=== PATIENT | male | born 1955 | race Caucasian/White ===

== ENCOUNTER 2020-02-03 19:53 | Inpatient (IN) ==
[2020-02-03] MEDS ORDERED: Ondansetron 4 MG/2 ML VIAL IVP PRN (22:14)
[2020-02-03] MEDS ORDERED: Naloxone 0.4 MG/ML INJ IVP PRN (22:14)
[2020-02-03] MEDS ORDERED: Acetaminophen 325 MG TABLET PO PRN (22:14)
[2020-02-03] MEDS ORDERED: *HR* Heparin 5,000 UNIT/ML VIAL IVP ONE (23:47)
[2020-02-03] MEDS ORDERED: *HR* Heparin 5,000 UNIT/ML VIAL IVP PRN (23:47)
[2020-02-04] MEDS ORDERED: *HR* Heparin 5,000 UNIT/ML VIAL IVP PRN (00:10)
[2020-02-04 00:12] LABS: Alanine Aminotransferase 18 Units/L (7-52); Albumin 4.3 g/dL (3.5-5.7); Albumin/Globulin Ratio 2.2 (1.1-2.2); Alkaline Phosphatase 46 Units/L (34-104); Aspartate Amino Transferase 30 Units/L (13-39); BUN/Creatinine Ratio 22 (6-26); Bilirubin,Total 0.7 mg/dL (0.3-1.0); Blood Urea Nitrogen 17 mg/dL (8-23); Calcium 9.5 mg/dL (8.6-10.3); Carbon Dioxide 23 mEq/L (23-29); Chloride 107 mEq/L (98-107); Glucose 109 mg/dL (70-105); Osmolality,Calculated 286 (280-300); Potassium 3.5 mEq/L (3.5-5.1); Sodium 137 mEq/L (136-145); Total Protein 6.3 g/dL (6.4-8.9); eGFR For African Americans > 60 (> 60); eGFR For Non-African Americans > 60 (> 60)
[2020-02-04] MEDS ORDERED: *HR* Dextrose 50 % in Water (Syg) 50 ML SYRINGE IVP PRN (00:13)
[2020-02-04] MEDS ORDERED: D5% in Water 1,000 ML IVC PRN (00:13)
[2020-02-04] MEDS ORDERED: Dextrose Gel 15 GM/37.5 ML TUBE PO PRN ×2 (00:13)
[2020-02-04 00:17] LABS: Basophils % 0.3 %; Eosinophils # 0.1 K/mcL (0.0-0.6); Eosinophils % 1.5 %; Hematocrit 42.7 % (37.5-50.1); Hemoglobin 14.8 g/dL (12.9-16.9); Immature Granulocytes % 0.6 % (0-4); Lymphocytes # 2.6 K/mcL (0.6-4.6); Lymphocytes % 29.8 %; Mean Corpuscular HGB Conc 34.7 g/dL (31.6-35.5); Mean Corpuscular Hemoglobin 30.6 pg (28.0-33.3); Mean Corpuscular Volume 88.2 fL (83.0-100.0); Mean Platelet Volume 10.3 fL (9.4-12.4); Monocytes # 0.6 K/mcL (0.0-1.3); Neutrophils # 5.4 K/mcL (1.6-8.9); Platelet Count 251 K/mcL (140-400); Red Blood Count 4.84 M/mcL (4.19-5.50); Red Cell Distribution Width 12.8 % (11.5-14.5); Segmented Neutrophils % 60.8 %; White Blood Count 8.9 K/mcL (4.3-11.1)
[2020-02-04 00:23] LABS: Hematocrit 43.6 % (37.5-50.1); Hemoglobin 14.7 g/dL (12.9-16.9); Mean Corpuscular HGB Conc 33.7 g/dL (31.6-35.5); Mean Corpuscular Hemoglobin 30.1 pg (28.0-33.3); Mean Corpuscular Volume 89.3 fL (83.0-100.0); Mean Platelet Volume 10.4 fL (9.4-12.4); Platelet Count 246 K/mcL (140-400); Red Blood Count 4.88 M/mcL (4.19-5.50); Red Cell Distribution Width 12.8 % (11.5-14.5); White Blood Count 8.8 K/mcL (4.3-11.1)
[2020-02-04 00:32] LABS: Heparin anti-factor XA UFH 0.05 IU/mL (0.30-0.70); INR 1.1; Prothrombin Time 12.4 Seconds (9.4-12.1)
[2020-02-04] MEDS: Heparin 25,000 UNIT/250 ML D5W 25,000 UNIT/250 ML IV.SOLN IVC SCH ×2 (00:42→21:25)
[2020-02-04] MEDS: Aspirin 81 MG TAB.CHEW PO SCH ×2 (00:46→09:44)
[2020-02-04 04:47] LABS: Basophils % 0.2 %; Eosinophils # 0.2 K/mcL (0.0-0.6); Eosinophils % 1.6 %; Hematocrit 44.8 % (37.5-50.1); Hemoglobin 14.9 g/dL (12.9-16.9); Immature Granulocytes % 0.4 % (0-4); Lymphocytes # 3.1 K/mcL (0.6-4.6); Mean Corpuscular HGB Conc 33.3 g/dL (31.6-35.5); Mean Corpuscular Hemoglobin 29.7 pg (28.0-33.3); Mean Corpuscular Volume 89.4 fL (83.0-100.0); Mean Platelet Volume 10.4 fL (9.4-12.4); Monocytes # 0.9 K/mcL (0.0-1.3); Monocytes % 8.2 %; Neutrophils # 6.7 K/mcL (1.6-8.9); Platelet Count 246 K/mcL (140-400); Red Blood Count 5.01 M/mcL (4.19-5.50); Red Cell Distribution Width 12.9 % (11.5-14.5); Segmented Neutrophils % 61.6 %
[2020-02-04 04:59] LABS: INR 1.1; Prothrombin Time 12.9 Seconds (9.4-12.1)
[2020-02-04 05:03] LABS: BUN/Creatinine Ratio 20 (6-26); Blood Urea Nitrogen 16 mg/dL (8-23); Calcium 9.3 mg/dL (8.6-10.3); Carbon Dioxide 24 mEq/L (23-29); Chloride 105 mEq/L (98-107); Chol/HDL Ratio 2.4 (0-4.9); Cholesterol 90 mg/dL (< 200); Glucose 125 mg/dL (70-105); HDL Cholesterol 38 mg/dL (40-59); LDL Cholesterol,Calculated 34 mg/dL (0-99); Magnesium 1.7 mg/dL (1.6-2.6); Osmolality,Calculated 289 (280-300); Phosphorous 3.5 mg/dL (2.7-4.5); Potassium 3.6 mEq/L (3.5-5.1); Sodium 138 mEq/L (136-145); Triglycerides 91 mg/dL (< 150); eGFR For African Americans > 60 (> 60); eGFR For Non-African Americans > 60 (> 60)
[2020-02-04] MEDS: Insulin LISPRO 300 UNITS/3 ML VIAL SQ SCH ×4 (08:38→21:20)
[2020-02-04] MEDS ORDERED: Nitroglycerin 0.4 MG TAB.SUBL SL PRN (08:45)
[2020-02-04] MEDS ORDERED: Perflutren Lipid Microsphere 1.3 ML in 0.9 % Sodium Chloride 8.7 ML IVP ONE (08:47)
[2020-02-04] MEDS: lisinopriL 5 MG TABLET PO SCH (09:44)
[2020-02-04] MEDS ORDERED: 0.9 % Sodium Chloride 1,000 ML ONE ×2 (10:56→11:02)
[2020-02-04] MEDS ORDERED: *HR* Heparin 10,000 UNIT/10 ML VIAL ONE (10:56)
[2020-02-04] MEDS ORDERED: ISOVUE-370 200 ML INFUS..BTL ONE (10:56)
[2020-02-04] MEDS ORDERED: Heparin 1,000 UNITS/500 mL 500 ML ONE (10:56)
[2020-02-04] MEDS ORDERED: Nitroglycerin 1,000 MCG/10 ML VIAL IV ONE (10:56)
[2020-02-04] MEDS ORDERED: *HR* Midazolam HCl 2 MG/2 ML VIAL ONE (11:05)
[2020-02-04] MEDS ORDERED: *HR* FentaNYL (PF) 100 MCG/2 ML VIAL ONE (11:05)
[2020-02-05 02:13] LABS: Hemoglobin 14.7 g/dL (12.9-16.9); Mean Corpuscular HGB Conc 33.4 g/dL (31.6-35.5); Mean Corpuscular Hemoglobin 29.8 pg (28.0-33.3); Mean Corpuscular Volume 89.1 fL (83.0-100.0); Mean Platelet Volume 10.5 fL (9.4-12.4); Platelet Count 255 K/mcL (140-400); Red Blood Count 4.94 M/mcL (4.19-5.50); Red Cell Distribution Width 12.8 % (11.5-14.5); White Blood Count 8.1 K/mcL (4.3-11.1)
[2020-02-05 02:29] LABS: BUN/Creatinine Ratio 22 (6-26); Blood Urea Nitrogen 21 mg/dL (8-23); Calcium 8.8 mg/dL (8.6-10.3); Carbon Dioxide 25 mEq/L (23-29); Chloride 103 mEq/L (98-107); Glucose 168 mg/dL (70-105); Osmolality,Calculated 289 (280-300); Potassium 3.8 mEq/L (3.5-5.1); Sodium 136 mEq/L (136-145); eGFR For African Americans > 60 (> 60); eGFR For Non-African Americans > 60 (> 60)
[2020-02-05] MEDS: Aspirin 81 MG TAB.CHEW PO SCH (07:52)
[2020-02-05] MEDS: lisinopriL 5 MG TABLET PO SCH (07:52)
[2020-02-05] MEDS: Insulin LISPRO 300 UNITS/3 ML VIAL SQ SCH ×4 (07:52→20:14)
[2020-02-05 14:40] LABS: Estimated Average Glucose 189 mg/dl
[2020-02-05 17:37] LABS: Bilirubin,Urine Negative (Negative); Blood,Urine Negative (Negative); Clarity,Urine Clear (Clear); Color,Urine Yellow (Yellow); Glucose,Urine (UA) >=1000 mg/dL (Normal); Ketones,Urine Negative (Negative); Leukocyte Esterase,Urine Negative (Negative); Nitrite,Urine Negative (Negative); Protein,Urine Negative (Neg-Trace); Specific Gravity,Urine 1.024 (1.010-1.025); Urobilinogen,Urine Normal (Normal)
[2020-02-05] MEDS: Heparin 25,000 UNIT/250 ML D5W 25,000 UNIT/250 ML IV.SOLN IVC SCH (19:01)
[2020-02-06 04:47] LABS: Hematocrit 43.5 % (37.5-50.1); Hemoglobin 14.9 g/dL (12.9-16.9); Mean Corpuscular HGB Conc 34.3 g/dL (31.6-35.5); Mean Corpuscular Hemoglobin 30.6 pg (28.0-33.3); Mean Corpuscular Volume 89.3 fL (83.0-100.0); Mean Platelet Volume 10.6 fL (9.4-12.4); Platelet Count 240 K/mcL (140-400); Red Blood Count 4.87 M/mcL (4.19-5.50); Red Cell Distribution Width 12.8 % (11.5-14.5); White Blood Count 7.6 K/mcL (4.3-11.1)
[2020-02-06 05:05] LABS: BUN/Creatinine Ratio 18 (6-26); Blood Urea Nitrogen 18 mg/dL (8-23); Calcium 8.8 mg/dL (8.6-10.3); Carbon Dioxide 27 mEq/L (23-29); Chloride 103 mEq/L (98-107); Glucose 192 mg/dL (70-105); Osmolality,Calculated 291 (280-300); Sodium 137 mEq/L (136-145); eGFR For African Americans > 60 (> 60); eGFR For Non-African Americans > 60 (> 60)
[2020-02-06] MEDS: lisinopriL 5 MG TABLET PO SCH (08:01)
[2020-02-06] MEDS: Aspirin 81 MG TAB.CHEW PO SCH (08:01)
[2020-02-06] MEDS: Insulin LISPRO 300 UNITS/3 ML VIAL SQ SCH ×4 (08:01→20:19)
[2020-02-06] MEDS: Heparin 25,000 UNIT/250 ML D5W 25,000 UNIT/250 ML IV.SOLN IVC SCH (17:29)
[2020-02-06] MEDS: Chlorhexidine Rinse 15 ML MOUTHWASH MM SCH (20:19)
[2020-02-07 01:11] LABS: Hematocrit 43.7 % (37.5-50.1); Hemoglobin 14.8 g/dL (12.9-16.9); Mean Corpuscular HGB Conc 33.9 g/dL (31.6-35.5); Mean Corpuscular Hemoglobin 29.8 pg (28.0-33.3); Mean Corpuscular Volume 88.1 fL (83.0-100.0); Mean Platelet Volume 10.5 fL (9.4-12.4); Platelet Count 253 K/mcL (140-400); Red Blood Count 4.96 M/mcL (4.19-5.50); Red Cell Distribution Width 12.7 % (11.5-14.5); White Blood Count 7.3 K/mcL (4.3-11.1)
[2020-02-07 01:26] LABS: BUN/Creatinine Ratio 20 (6-26); Blood Urea Nitrogen 20 mg/dL (8-23); Calcium 8.9 mg/dL (8.6-10.3); Carbon Dioxide 22 mEq/L (23-29); Chloride 104 mEq/L (98-107); Glucose 187 mg/dL (70-105); Osmolality,Calculated 290 (280-300); Potassium 3.9 mEq/L (3.5-5.1); Sodium 136 mEq/L (136-145); eGFR For African Americans > 60 (> 60); eGFR For Non-African Americans > 60 (> 60)
[2020-02-07] MEDS: Chlorhexidine Rinse 15 ML MOUTHWASH MM SCH ×2 (06:28→21:04)
[2020-02-07] MEDS ORDERED: *HR* Midazolam HCl 5 MG/5 ML VIAL IVP ONE ×2 (06:55→07:04)
[2020-02-07] MEDS ORDERED: *HR* FentaNYL (PF) 1,000 MCG/20 ML VIAL ONE (06:55)
[2020-02-07] MEDS ORDERED: *HR* Propofol 200 MG/20 ML VIAL IVP ONE (06:55)
[2020-02-07] MEDS ORDERED: *HR* Rocuronium Bromide 50 MG/5 ML VIAL ONE ×3 (07:05→09:47)
[2020-02-07] MEDS ORDERED: *HR* PHENYLEPHRINE 1,000 MCG/10 ML SYRINGE IVP ONE (07:05)
[2020-02-07] MEDS ORDERED: Dexamethasone 4 MG/ML VIAL ONE (07:05)
[2020-02-07] MEDS ORDERED: *HR* Magnesium Sulfate 1 GM/2 ML VIAL ONE (07:06)
[2020-02-07] MEDS ORDERED: Famotidine 20 MG/2 ML VIAL ONE (07:06)
[2020-02-07] MEDS ORDERED: Tranexamic Acid 1,000 MG/10 ML VIAL ONE (07:20)
[2020-02-07] MEDS ORDERED: Lidocaine 2% Syringe 100 MG/5 ML ONE (07:20)
[2020-02-07] MEDS ORDERED: Dextrose 50 % in Water (Vial) 30 ML, Sodium Bicarbonate 20 MEQ, Potassium Chloride 15 M... TH ONE (07:45)
[2020-02-07] MEDS ORDERED: Dextrose 50 % in Water (Vial) 30 ML, Sodium Bicarbonate 20 MEQ, Lidocaine 1% 5 ML, Insu... TH ONE ×3 (07:45)
[2020-02-07] MEDS ORDERED: Norepinephrine 4 MG in 0.9 % Sodium Chloride 250 ML IVC PRN (07:45)
[2020-02-07] MEDS ORDERED: Heparin 15,000 UNIT in 0.9 % Sodium Chloride 500 ML IV ONE (07:45)
[2020-02-07] MEDS ORDERED: Insulin Human Regular 100 UNIT in 0.9 % Sodium Chloride 100 ML IV PRN (07:45)
[2020-02-07] MEDS ORDERED: CeFAZolin Syr 2,000MG/20 ML 2,000 MG/20 ML SYRINGE IVPB ONE (08:00)
[2020-02-07 08:26] LABS: ABG Base Excess -1 mEq/L (-2 to 3); ABG Chloride 102 mEq/L (98-107); ABG Glucose 229 mg/dL (60-95); ABG HCO3 26 mEq/L (21-27); ABG Ionized Calcium 1.23 mmol/L (1.15-1.35); ABG Oxygen Saturation 100 % (95-98); ABG PCO2 49 mmHg (35-45); ABG PH 7.33 pH Units (7.32-7.45); ABG PO2 293 mmHg (85-104); ABG TCO2 27 mEq/L (20-26)
[2020-02-07] MEDS ORDERED: Albumin Human 5% 25.0 GM/500 ML IV.SOLN ONE (08:35)
[2020-02-07] MEDS ORDERED: Albumin Human 25% 25 GM/100 ML IV.SOLN IV ONE (09:34)
[2020-02-07] MEDS ORDERED: Heparin 1,000 UNITS/500 mL IV.SOLN IVC ONE (09:34)
[2020-02-07] MEDS ORDERED: *HR* Phenylephrine 10 MG/ML VIAL IVC ONE (09:34)
[2020-02-07] MEDS ORDERED: Mannitol 25% vial 12.5 GM/50 ML VIAL IVP ONE (09:34)
[2020-02-07] MEDS ORDERED: *HR* Magnesium Sulfate 2 GM/50 ML PIGGYBACK IVPB ONE (09:34)
[2020-02-07] MEDS ORDERED: *HR* Heparin 10,000 UNIT/10 ML VIAL IV ONE (09:34)
[2020-02-07] MEDS ORDERED: Tranexamic Acid 1,000 MG/10 ML VIAL IVP ONE (09:34)
[2020-02-07] MEDS ORDERED: Lidocaine 2% Syringe 100 MG/5 ML IV ONE (09:34)
[2020-02-07] MEDS ORDERED: D5% in Water 250 ML IV BAG IV ONE (09:34)
[2020-02-07] MEDS ORDERED: *HR* FentaNYL (PF) 250 MCG/5 ML VIAL ONE (09:47)
[2020-02-07 09:52] LABS: ABG Base Excess -3 mEq/L (-2 to 3); ABG Chloride 104 mEq/L (98-107); ABG Glucose 234 mg/dL (60-95); ABG HCO3 22 mEq/L (21-27); ABG Ionized Calcium 1.09 mmol/L (1.15-1.35); ABG Oxygen Saturation 100 % (95-98); ABG PCO2 39 mmHg (35-45); ABG PH 7.37 pH Units (7.32-7.45); ABG PO2 212 mmHg (85-104); ABG TCO2 24 mEq/L (20-26)
[2020-02-07] MEDS ORDERED: Calcium Gluconate 1,000 MG/10 ML VIAL ONE (10:07)
[2020-02-07] MEDS ORDERED: Protamine Sulfate 250 MG/25 ML VIAL IVP ONE (10:07)
[2020-02-07] MEDS ORDERED: Protamine Sulfate 50 MG/5 ML VIAL IVP ONE (10:07)
[2020-02-07] MEDS: lisinopriL 5 MG TABLET PO SCH (10:23)
[2020-02-07] MEDS: Aspirin 81 MG TAB.CHEW PO SCH (10:23)
[2020-02-07] MEDS: Insulin LISPRO 300 UNITS/3 ML VIAL SQ SCH ×3 (10:23→10:25)
[2020-02-07] MEDS: Heparin 25,000 UNIT/250 ML D5W 25,000 UNIT/250 ML IV.SOLN IVC SCH (10:25)
[2020-02-07 10:26] LABS: ABG Base Excess 0 mEq/L (-2 to 3); ABG Chloride 98 mEq/L (98-107); ABG Glucose 304 mg/dL (60-95); ABG HCO3 25 mEq/L (21-27); ABG Ionized Calcium 1.04 mmol/L (1.15-1.35); ABG Oxygen Saturation 100 % (95-98); ABG PCO2 41 mmHg (35-45); ABG PH 7.39 pH Units (7.32-7.45); ABG PO2 481 mmHg (85-104); ABG TCO2 26 mEq/L (20-26)
[2020-02-07 11:26] LABS: ABG Base Excess -1 mEq/L (-2 to 3); ABG Chloride 97 mEq/L (98-107); ABG Glucose 282 mg/dL (60-95); ABG HCO3 25 mEq/L (21-27); ABG Ionized Calcium 1.04 mmol/L (1.15-1.35); ABG Oxygen Saturation 100 % (95-98); ABG PCO2 45 mmHg (35-45); ABG PH 7.35 pH Units (7.32-7.45); ABG PO2 443 mmHg (85-104); ABG TCO2 26 mEq/L (20-26)
[2020-02-07] MEDS ORDERED: Albumin Human 5% 12.5 GM/250 ML IV.SOLN ONE (11:33)
[2020-02-07 11:37] LABS: ABG Base Excess -1 mEq/L (-2 to 3); ABG Chloride 99 mEq/L (98-107); ABG Glucose 263 mg/dL (60-95); ABG HCO3 26 mEq/L (21-27); ABG Ionized Calcium 1.28 mmol/L (1.15-1.35); ABG Oxygen Saturation 100 % (95-98); ABG PCO2 48 mmHg (35-45); ABG PH 7.33 pH Units (7.32-7.45); ABG PO2 359 mmHg (85-104); ABG TCO2 27 mEq/L (20-26)
[2020-02-07 12:12] LABS: ABG Base Excess -3 mEq/L (-2 to 3); ABG Chloride 103 mEq/L (98-107); ABG Glucose 260 mg/dL (60-95); ABG HCO3 22 mEq/L (21-27); ABG Ionized Calcium 1.31 mmol/L (1.15-1.35); ABG Oxygen Saturation 99 % (95-98); ABG PCO2 37 mmHg (35-45); ABG PH 7.37 pH Units (7.32-7.45); ABG PO2 123 mmHg (85-104); ABG TCO2 23 mEq/L (20-26)
[2020-02-07] MEDS ORDERED: Albumin Human 5% 12.5 GM/250 ML IV.SOLN IVPB PRN (12:54)
[2020-02-07] MEDS ORDERED: *HR* Dextrose 50 % in Water (Syg) 50 ML SYRINGE IVP PRN (12:54)
[2020-02-07] MEDS ORDERED: Potassium Chloride 40 MEQ/200 ML BAG IVPB PRN (12:54)
[2020-02-07] MEDS ORDERED: Acetaminophen 650 MG RECTAL SUPP RC PRN (12:54)
[2020-02-07] MEDS ORDERED: Insulin Regular, Human 100 UNIT/ML IV PRN (12:54)
[2020-02-07] MEDS ORDERED: Calcium Gluconate 1gm/50mL 1 GM/50 ML BAG IVPB PRN (12:54)
[2020-02-07] MEDS ORDERED: 0.9 % Sodium Chloride w KCl 20 MEQ/1,000 ML MLS IVC SCH (13:00)
[2020-02-07 13:18] LABS: ABG Base Excess 0 mEq/L (-2 to 3); ABG HCO3 26 mEq/L (21-27); ABG Oxygen Saturation 96 % (95-98); ABG PCO2 43 mmHg (35-45); ABG PH 7.38 pH Units (7.32-7.45); ABG PO2 87 mmHg (85-104); ABG TCO2 27 mEq/L (20-26); Blood Gas Modality ASSIST CONTROL; Blood Gas VT 600 cc
[2020-02-07 13:22] LABS: Basophils % 0.1 %; Eosinophils % 0.2 %; Hematocrit 38.1 % (37.5-50.1); Immature Granulocytes % 0.5 % (0-4); Lymphocytes # 1.1 K/mcL (0.6-4.6); Lymphocytes % 9.3 %; Mean Corpuscular HGB Conc 34.1 g/dL (31.6-35.5); Mean Corpuscular Hemoglobin 30.3 pg (28.0-33.3); Mean Corpuscular Volume 88.8 fL (83.0-100.0); Mean Platelet Volume 10.2 fL (9.4-12.4); Monocytes % 7.9 %; Neutrophils # 10.1 K/mcL (1.6-8.9); Platelet Count 160 K/mcL (140-400); Red Blood Count 4.29 M/mcL (4.19-5.50); Red Cell Distribution Width 12.6 % (11.5-14.5)
[2020-02-07 13:28] LABS: White Blood Count 12.3 K/mcL (4.3-11.1)
[2020-02-07 13:32] LABS: INR 1.2
[2020-02-07 13:35] LABS: Activated Partial Thrombo Time 29.2 Seconds (26.0-36.0)
[2020-02-07 13:39] LABS: BUN/Creatinine Ratio 17 (6-26); Blood Urea Nitrogen 17 mg/dL (8-23); Calcium 8.3 mg/dL (8.6-10.3); Carbon Dioxide 25 mEq/L (23-29); Chloride 108 mEq/L (98-107); Glucose 185 mg/dL (70-105); Magnesium 2.8 mg/dL (1.6-2.6); Osmolality,Calculated 292 (280-300); Potassium 3.5 mEq/L (3.5-5.1); Prothrombin Time 13.8 Seconds (9.4-12.1); Sodium 138 mEq/L (136-145); eGFR For African Americans > 60 (> 60); eGFR For Non-African Americans > 60 (> 60)
[2020-02-07] MEDS: Insulin Human Regular 100 UNIT in 0.9 % Sodium Chloride 100 ML IVC SCH (13:51)
[2020-02-07] MEDS: *HR* FentaNYL (PF) 100 MCG/2 ML VIAL IVP PRN ×4 (13:52→23:50)
[2020-02-07] MEDS: *HR* OxyCODONE/APAP 5/325 TABLET PO PRN ×3 (13:53→23:28)
[2020-02-07] MEDS: Norepinephrine 4 MG in 0.9 % Sodium Chloride 250 ML IVC SCH (13:53)
[2020-02-07] MEDS: Pantoprazole 40 MG VIAL IVP SCH (13:54)
[2020-02-07] MEDS: niCARdipine 20 MG in 0.9 % Sodium Chloride 192 ML IVC SCH (14:14)
[2020-02-07] MEDS: ceFAZolin 2,000 MG in 0.9 % Sodium Chloride 100 ML IVPB SCH ×2 (15:06→23:28)
[2020-02-07 17:01] LABS: ABG Base Excess -2 mEq/L (-2 to 3); ABG HCO3 23 mEq/L (21-27); ABG Oxygen Saturation 95 % (95-98); ABG PCO2 40 mmHg (35-45); ABG PH 7.37 pH Units (7.32-7.45); ABG PO2 79 mmHg (85-104); ABG TCO2 24 mEq/L (20-26); Blood Gas Modality CPAP/PS; Blood Gas Pressure Support 10 cm H2O
[2020-02-07] MEDS: Metoclopramide 10 MG/2 ML VIAL IVP SCH ×2 (17:01→23:28)
[2020-02-07 18:06] LABS: ABG Base Excess -2 mEq/L (-2 to 3); ABG HCO3 24 mEq/L (21-27); ABG Oxygen Saturation 95 % (95-98); ABG PCO2 41 mmHg (35-45); ABG PH 7.37 pH Units (7.32-7.45); ABG PO2 76 mmHg (85-104); ABG TCO2 25 mEq/L (20-26)
[2020-02-08] MEDS: *HR* FentaNYL (PF) 100 MCG/2 ML VIAL IVP PRN ×3 (02:14→08:00)
[2020-02-08 03:46] LABS: Basophils % 0.1 %; Hemoglobin 12.1 g/dL (12.9-16.9); Immature Granulocytes % 0.3 % (0-4); Lymphocytes # 0.8 K/mcL (0.6-4.6); Lymphocytes % 6.5 %; Mean Corpuscular HGB Conc 33.6 g/dL (31.6-35.5); Mean Corpuscular Hemoglobin 30.3 pg (28.0-33.3); Mean Platelet Volume 10.3 fL (9.4-12.4); Monocytes # 1.5 K/mcL (0.0-1.3); Monocytes % 11.6 %; Neutrophils # 10.3 K/mcL (1.6-8.9); Platelet Count 158 K/mcL (140-400); Red Cell Distribution Width 12.9 % (11.5-14.5); Segmented Neutrophils % 81.5 %; White Blood Count 12.7 K/mcL (4.3-11.1)
[2020-02-08 03:53] LABS: INR 1.2; Prothrombin Time 13.5 Seconds (9.4-12.1)
[2020-02-08 03:55] LABS: Activated Partial Thrombo Time 27.9 Seconds (26.0-36.0)
[2020-02-08 04:08] LABS: BUN/Creatinine Ratio 16 (6-26); Blood Urea Nitrogen 15 mg/dL (8-23); Carbon Dioxide 25 mEq/L (23-29); Chloride 108 mEq/L (98-107); Glucose 150 mg/dL (70-105); Magnesium 2.1 mg/dL (1.6-2.6); Osmolality,Calculated 290 (280-300); Potassium 4.2 mEq/L (3.5-5.1); Sodium 138 mEq/L (136-145); eGFR For African Americans > 60 (> 60); eGFR For Non-African Americans > 60 (> 60)
[2020-02-08] MEDS: *HR* OxyCODONE/APAP 5/325 TABLET PO PRN ×5 (04:12→23:03)
[2020-02-08] MEDS: Metoclopramide 10 MG/2 ML VIAL IVP SCH ×4 (05:09→23:04)
[2020-02-08] MEDS: Chlorhexidine Rinse 15 ML MOUTHWASH MM SCH ×2 (08:17→21:47)
[2020-02-08] MEDS: Pantoprazole 40 MG VIAL IVP SCH (08:17)
[2020-02-08] MEDS: Furosemide 20 MG/2 ML VIAL IVP SCH ×2 (08:17→21:42)
[2020-02-08] MEDS: Aspirin 81 MG TAB.CHEW PO SCH (08:17)
[2020-02-08] MEDS ORDERED: Aspirin Enteric Coated 81 MG Tablet PO SCH (09:00)
[2020-02-08] MEDS: Norepinephrine 4 MG in 0.9 % Sodium Chloride 250 ML IVC SCH (13:25)
[2020-02-08] MEDS: niCARdipine 20 MG in 0.9 % Sodium Chloride 192 ML IVC SCH (13:25)
[2020-02-08] MEDS: Insulin Human Regular 100 UNIT in 0.9 % Sodium Chloride 100 ML IVC SCH (14:47)
[2020-02-08] MEDS: Insulin LISPRO 300 UNITS/3 ML VIAL SQ SCH ×2 (16:15→21:45)
[2020-02-09] MEDS: *HR* OxyCODONE/APAP 5/325 TABLET PO PRN ×5 (03:00→22:37)
[2020-02-09] MEDS: Metoclopramide 10 MG/2 ML VIAL IVP SCH ×4 (06:42→23:16)
[2020-02-09] MEDS ORDERED: *HR* Amiodarone 200 MG TABLET PO SCH (09:00)
[2020-02-09] MEDS: Chlorhexidine Rinse 15 ML MOUTHWASH MM SCH ×2 (10:00→20:29)
[2020-02-09] MEDS: Pantoprazole 40 MG VIAL IVP SCH (10:00)
[2020-02-09] MEDS: Furosemide 20 MG/2 ML VIAL IVP SCH ×2 (10:01→20:30)
[2020-02-09] MEDS: Aspirin 81 MG TAB.CHEW PO SCH (10:01)
[2020-02-09] MEDS: *HR* Amiodarone 200 MG TABLET PO SCH ×2 (10:01→20:30)
[2020-02-09] MEDS: Insulin LISPRO 300 UNITS/3 ML VIAL SQ SCH ×4 (10:02→20:30)
[2020-02-09] MEDS: lisinopriL 5 MG TABLET PO SCH (10:05)
[2020-02-09] MEDS: niCARdipine 20 MG in 0.9 % Sodium Chloride 192 ML IVC SCH (11:59)
[2020-02-09] MEDS: Norepinephrine 4 MG in 0.9 % Sodium Chloride 250 ML IVC SCH (11:59)
[2020-02-10] MEDS: Metoclopramide 10 MG/2 ML VIAL IVP SCH ×3 (04:23→16:52)
[2020-02-10] MEDS: *HR* OxyCODONE/APAP 5/325 TABLET PO PRN ×4 (04:31→21:48)
[2020-02-10] MEDS: Insulin LISPRO 300 UNITS/3 ML VIAL SQ SCH ×4 (08:44→20:01)
[2020-02-10] MEDS: Aspirin 81 MG TAB.CHEW PO SCH (08:45)
[2020-02-10] MEDS: Chlorhexidine Rinse 15 ML MOUTHWASH MM SCH ×2 (08:45→20:00)
[2020-02-10] MEDS: Pantoprazole 40 MG VIAL IVP SCH (08:45)
[2020-02-10] MEDS: *HR* Amiodarone 200 MG TABLET PO SCH ×2 (08:45→20:00)
[2020-02-10] MEDS: Furosemide 20 MG/2 ML VIAL IVP SCH ×2 (08:46→20:01)
[2020-02-10] MEDS: lisinopriL 5 MG TABLET PO SCH (08:48)
[2020-02-11 04:16] LABS: BUN/Creatinine Ratio 28 (6-26); Blood Urea Nitrogen 26 mg/dL (8-23); Calcium 8.6 mg/dL (8.6-10.3); Carbon Dioxide 26 mEq/L (23-29); Chloride 96 mEq/L (98-107); Glucose 257 mg/dL (70-105); Magnesium 2.2 mg/dL (1.6-2.6); Osmolality,Calculated 290 (280-300); Potassium 3.8 mEq/L (3.5-5.1); Sodium 133 mEq/L (136-145); eGFR For African Americans > 60 (> 60); eGFR For Non-African Americans > 60 (> 60)
[2020-02-11] MEDS: Chlorhexidine Rinse 15 ML MOUTHWASH MM SCH (08:08)
[2020-02-11] MEDS: *HR* Amiodarone 200 MG TABLET PO SCH ×2 (08:09→19:42)
[2020-02-11] MEDS: Aspirin 81 MG TAB.CHEW PO SCH (08:09)
[2020-02-11] MEDS: lisinopriL 5 MG TABLET PO SCH (08:10)
[2020-02-11] MEDS: Pantoprazole 40 MG VIAL IVP SCH (08:10)
[2020-02-11] MEDS: Insulin LISPRO 300 UNITS/3 ML VIAL SQ SCH ×3 (08:10→17:09)
[2020-02-11] MEDS ORDERED: *HR* Dextrose 50 % in Water (Syg) 50 ML SYRINGE IVP PRN (10:08)
[2020-02-11] MEDS ORDERED: Dextrose Gel 15 GM/37.5 ML TUBE PO PRN ×2 (10:08)
[2020-02-11] MEDS ORDERED: Naloxone 0.4 MG/ML INJ IVP PRN (10:08)
[2020-02-11] MEDS ORDERED: D5% in Water 1,000 ML IVC PRN (10:08)
[2020-02-11] MEDS ORDERED: Insulin Regular, Human 100 UNIT/ML IV PRN (10:08)
[2020-02-11] MEDS ORDERED: Acetaminophen 325 MG TABLET PO PRN (10:08)
[2020-02-11] MEDS ORDERED: *HR* OxyCODONE/APAP 5/325 TABLET PO PRN (10:08)
[2020-02-11] MEDS ORDERED: Nitroglycerin 0.4 MG TAB.SUBL SL PRN (10:08)
[2020-02-11] MEDS ORDERED: Ondansetron 4 MG/2 ML VIAL IVP PRN (10:08)
[2020-02-11] MEDS ORDERED: Insulin LISPRO 300 UNITS/3 ML VIAL SQ SCH (21:00)
[2020-02-12] MEDS: Insulin LISPRO 300 UNITS/3 ML VIAL SQ SCH (07:30)
[2020-02-12] MEDS ORDERED: Aspirin 81 MG TAB.CHEW PO SCH (09:00)
[2020-02-12] MEDS ORDERED: lisinopriL 5 MG TABLET PO SCH (09:00)
[2020-02-12] MEDS ORDERED: Pantoprazole 40 MG VIAL IVP SCH (09:00)
[2020-02-12] MEDS: *HR* Amiodarone 200 MG TABLET PO SCH (11:21)
[2020-02-12 12:40] VITALS: BP 142/86
== END 2020-02-12 13:00 | disposition home or self-care (01) | DRG 234 ==
LOC: 2ANU → SUATTDRO 21:34 → ICNU 02-07 11:02
PROVIDERS: ADMIT Internal Medicine; ATTEND Family Medicine